=== PATIENT | male | born 1950 | race Caucasian/White ===

== ENCOUNTER → 2022-08-19 | Outpatient (CLI) | payer MEDICARE, BC ==
--- NOTE | 2022-08-24 16:41 | P.HOLTER ---
[24] HOUR HOLTER MONITOR NOTE: INDICATION: Palpitations START DATE: 08/19/2022 END DATE: NOISE BURDEN: 1.23 %. This main overall good-quality study MAX HEART RATE: 102 BPM MIN HEART RATE: 57 BPM AVERAGE HEART RATE: 74 BPM SUPRAVENTRICULAR ECTOPY BURDEN: 0.04 % VENTRICULAR ECTOPY BURDEN: 0.07 % which were mostly [monomorphic] CONCLUSION: 1. Patient's baseline rhythm was [normal sinus rhythm]. 2. There were no signficant atrial fibrillation, atrial flutter, or sustained ventricular tachycardia episodes. 3. There were no significant pauses greater than 2 seconds. 4. Overall good-quality study with good compliance. Most few monomorphic premature ventricular contractions but no significant burden Please correlate clinically Elijah Egan MD Cardiovascular disease
--- NOTE | 2022-08-26 11:41 | HM ---
INDICATION: Palpitations START DATE: 08/19/2022 END DATE: NOISE BURDEN: 1.23 %. This main overall good-quality study MAX HEART RATE: 102 BPM MIN HEART RATE: 57 BPM AVERAGE HEART RATE: 74 BPM SUPRAVENTRICULAR ECTOPY BURDEN: 0.04 % VENTRICULAR ECTOPY BURDEN: 0.07 % which were mostly monomorphic CONCLUSION: 1. Patient's baseline rhythm was normal sinus rhythm. 2. There were no significant atrial fibrillation, atrial flutter, or sustained ventricular tachycardia episodes. 3. There were no significant pauses greater than 2 seconds. 4. Overall good-quality study with good compliance. Most few monomorphic premature ventricular contractions but no significant burden Please correlate clinically [facility]TDD
== END | disposition home or self-care (01) ==
LOC: RADECHMAIN 12:13
PROVIDERS: ATTEND Family Medicine
DX: R00.2 Palpitations (principal)
CPT/HCPCS: 93225; 93226